=== PATIENT | male | born 2000 | race Caucasian/White ===

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

== ENCOUNTER 2022-01-28 21:40 | Emergency (ER) | payer OTHER | END 2022-01-29 00:40 | disposition left against medical advice (07) | LOC: ER1 21:40 | DX: Z53.21 Procedure and treatment not carried out due to patient leaving prior to being seen by health care provider (principal) ==

== ENCOUNTER → 2022-02-26 | Outpatient (CLI) | payer OTHER | LOC: RAD 17:21 | DX: R05.1 Acute cough (principal) | CPT/HCPCS: 71046 ==

== ENCOUNTER 2022-04-19 18:02 | Emergency (ER) | payer OTHER ==
[2022-04-19] MEDS ORDERED: NORFLEX 100 MG100 MG PO (20:32)
[2022-04-19] MEDS ORDERED: MEDROL DOSEPAK 24 MG PO (20:32)
== END 2022-04-19 20:43 | disposition home or self-care (01) ==
LOC: ER1 18:02
DX: M54.2 Cervicalgia (principal); F17.290 Nicotine dependence, other tobacco product, uncomplicated; X50.0XXA Overexertion from strenuous movement or load, initial encounter
CPT/HCPCS: 72125; 99284